=== PATIENT | female | born 1960 | race African-American/Black ===

== ENCOUNTER 2016-09-12 20:55 | Emergency (ER) | payer MEDICAID ==
[~2016-09-12] VITALS: Ht 170.2 cm; Wt 95.0 kg
[2016-09-12] MEDS ORDERED: SODIUM CHLORIDE 0.9% 1,000 ML IV ONE (21:22)
[2016-09-12 21:35] LABS: BASOPHILS % 0.5 % (0.0-2.0); EOSINOPHILS % 0.2 % (0.0-5.0); HEMATOCRIT. 41.8 % (36.0-48.0); HEMOGLOBIN. 14.2 g/dL (12.0-16.0); LYMPHOCYTES % 12.2 % (20.0-50.0); MEAN CORPUSCULAR HEMOGLOBIN 29.4 pg (28.0-32.0); MEAN CORPUSCULAR HGB CONC 33.9 g/dL (31.0-37.0); MEAN CORPUSCULAR VOLUME 86.8 fL (81.0-99.0); MEAN PLATELET VOLUME 7.8 fl (7.4-10.4); NEUTROPHILS % 80.1 % (40.0-76.0); PLATELET 224 x1000/uL (130-400); RED BLOOD CELL COUNT 4.81 mill/uL (4.2-5.4); WHITE BLOOD COUNT 9.7 x1000/uL (4.5-11.0)
[2016-09-12 21:37] LABS: CHLORIDE 103 mEq/L (98-107)
[2016-09-12 21:39] LABS: INDEX HEMOLYSI 1 (1-3); INDEX ICTERIC 1 (1-4); INDEX LIPEMIC 1 (1-3)
[2016-09-12 21:42] LABS: ANION GAP 11; CARBON DIOXIDE 25 mEq/L (21-32); UREA NITROGEN BLOOD 11 mg/dL (7-21)
[2016-09-12 21:47] LABS: ALANINE AMINOTRANSFERASE 45 IU/L (13-61); eGFR > 60 mL/min (>60)
[2016-09-12] MEDS ORDERED: POTASSIUM CHLORIDE 20MEQ TABLET SR PO NR (22:10)
[2016-09-12] MEDS ORDERED: POTASSIUM CHLORIDE 40MEQ/30ML UDC PO ONE (22:15)
[2016-09-12 23:13] VITALS: BP 136/78
== END 2016-09-12 23:14 | disposition home or self-care (01) ==
LOC: ER 20:57
DX: E87.6 Hypokalemia (principal); Z88.1 Allergy status to other antibiotic agents; R55 Syncope and collapse
CPT/HCPCS: 36415; 80053; 85025; 93005; 96360; 96361; 99285; Z7610; J7030

== ENCOUNTER 2016-10-03 13:15 | Emergency (ER) | payer MEDICAID ==
[~2016-10-03] VITALS: Ht 170.2 cm; Wt 100.0 kg
[2016-10-03 13:56] VITALS: BP 161/89
== END 2016-10-03 15:06 | disposition home or self-care (01) ==
LOC: ER 14:38
DX: J02.9 Acute pharyngitis, unspecified (principal); R05 Cough; Z88.1 Allergy status to other antibiotic agents
CPT/HCPCS: 87070; 87430; 99284

== ENCOUNTER 2018-07-18 00:25 | Emergency (ER) | payer MEDICAID, OTHER ==
[~2018-07-18] VITALS: Ht 175.3 cm; Wt 109.0 kg
[2018-07-18] MEDS ORDERED: SODIUM CHLORIDE 0.9% 1,000 ML IV ONE (03:07)
[2018-07-18 03:48] LABS: BASOPHILS % 0.6 % (0.0-2.0); EOSINOPHILS % 0.4 % (0.0-5.0); HEMATOCRIT. 45.1 % (36.0-48.0); HEMOGLOBIN. 15.4 g/dL (12.0-16.0); LYMPHOCYTES % 19.7 % (20.0-50.0); MEAN CORPUSCULAR VOLUME 88.2 fL (81.0-99.0); MONOCYTES % 6.6 % (2.0-8.0); NEUTROPHILS % 72.7 % (40.0-76.0); PLATELET 292 x1000/uL (130-400); RED BLOOD CELL COUNT 5.11 mill/uL (4.2-5.4); RED CELL DISTRIBUTION WIDTH 13.7 % (11.6-14.6)
[2018-07-18 03:55] LABS: CHLORIDE 106 mEq/L (98-107)
[2018-07-18] MEDS ORDERED: ACETAMINOPHEN 325MG TABLET PO PRN (07:00)
[2018-07-18] MEDS ORDERED: DOCUSATE SODIUM 100MG CAPSULE PO PRN (07:00)
[2018-07-18] MEDS ORDERED: ONDANSETRON HCL 4MG/2ML INJ IV PRN (07:00)
[2018-07-18] MEDS ORDERED: ENOXAPARIN 40MG/0.4ML SYR SUBCUT SCH (07:00)
[2018-07-18] MEDS ORDERED: CLONIDINE 0.1MG TABLET PO PRN (07:00)
[2018-07-18] MEDS ORDERED: HYDROCODONE/ACETAMINOPHEN 5/325MG TABLET PO PRN (07:00)
[2018-07-18] MEDS ORDERED: GUAIFENESIN 200MG/10ML SUGAR FREE UDC PO PRN (07:00)
[2018-07-18] MEDS ORDERED: MAGNESIUM/ALUMINUM HYDROXIDE/SIMETHICONE 30ML UDC PO PRN (07:00)
[2018-07-18] MEDS ORDERED: ASPIRIN 81MG EC TABLET PO SCH (09:00)
[2018-07-18] MEDS ORDERED: METOPROLOL TARTRATE 25MG TABLET PO SCH (09:00)
[2018-07-18 16:36] VITALS: BP 156/81
[2018-07-18 16:41] LABS: CREATINE KINASE 158 IU/L (26-192); CREATINE KINASE MB FRACTION < 1.0 ng/mL (0.5-3.6)
[2018-07-18] MEDS ORDERED: AMLODIPINE 2.5MG TABLET PO SCH (17:30)
[2018-07-18] MEDS ORDERED: POTASSIUM CHLORIDE 20MEQ TABLET SR PO ONE (17:30)
== END 2018-07-18 19:15 | disposition left against medical advice (07) ==
LOC: ER 00:25 → EDBEDREQ 05:10 → EDBEDREQTM 05:48 → EDBEDREQ 05:48 → SUPCPDRO 06:53 → CANRESERV 18:28 → ENRESERV 18:28 → ER 19:15 → CANBEDREQ 07-19 14:03
DX: R00.2 Palpitations (principal); R06.02 Shortness of breath; Z88.1 Allergy status to other antibiotic agents
CPT/HCPCS: 36415; 71045; 80053; 82550; 82553; 83880; 84443; 84484; 85025; 85379; 93005; 93970; 96372; 99284; J1650; J7030